=== PATIENT | female | born 2005 | race Two or more races ===

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

== ENCOUNTER → 2025-01-16 | Outpatient (CLI) | payer OTHER ==
[2025-01-16 08:00] LABS: Basophils # (auto) 0 10 ^3/uL (0-0.2); Basophils % (auto) 0.5 % (0.0-2.0); Eosinophils # (auto) 0 10 ^3/uL (0-0.8); Eosinophils % (auto) 0.5 % (0.0-7.0); Hematocrit 34.7 % (36.0-46.0); Hemoglobin 11.8 g/dL (12.2-16.2); Lymphocytes # (auto) 1.8 10 ^3/uL (0.4-5.4); Lymphocytes % (auto) 28.5 % (10.0-50.0); Mean Corpuscular Hemoglobin 29.6 pg (28.0-32.0); Mean Corpuscular Hgb Conc. 34.2 g/dL (32.0-36.0); Mean Corpuscular Volume 86.5 fL (80.0-100.0); Monocytes # (auto) 0.6 10 ^3/uL (0-1.3); Monocytes % (auto) 9.7 % (0.0-12.0); Neutrophils # (auto) 3.9 10 ^3/uL (1.6-8.6); Neutrophils % (auto) 60.8 % (37.0-80.0); Nucleated Red Blood Cells % 0.1 %; Platelet Count (auto) 291 10^3/uL (140-450); Red Blood Cells 4.01 10^6/uL (4.0-5.20); Red Cell Distribution Width 13.1 % (11.8-14.3); White Blood Cell 6.5 10^3/uL (4.4-10.8)
[2025-01-16 08:40] LABS: Alanine Aminotransferase 13 U/L (7-40); Alkaline Phosphatase 61 U/L (46-116); Anion Gap 9 (5-15); BUN/Creatinine Ratio 13.8 (10.0-20.0); Calcium 9.8 mg/dL (8.7-10.4); Carbon Dioxide 21 mmol/L (20-31); Glucose 88 mg/dL (74-106); Sodium 138 mmol/L (136-145); Total Protein 6.7 g/dL (5.7-8.2)
[2025-01-16 08:41] LABS: Albumin 4.2 g/dL (3.2-4.8)
[2025-01-16 08:52] LABS: Aspartate Aminotransferase < 8 U/L (13-40); Bilirubin, Total 0.2 mg/dL (0.2-1.0); Blood Urea Nitrogen 8 mg/dL (9-23); Chloride 108 mmol/L (98-107); Potassium 3.5 mmol/L (3.5-5.1)
[2025-01-18 00:07] LABS: Chlamydia Trachomatis, NAA Negative (Negative); Neisseria gonorrhoeae, NAA Negative (Negative)
== END | disposition home or self-care (01) ==
LOC: LAB 07:36
PROVIDERS: ATTEND Obstetrics & Gynecology
DX: Z34.00 Encounter for supervision of normal first pregnancy, unspecified trimester (principal); Z3A.00 Weeks of gestation of pregnancy not specified
CPT/HCPCS: 36415; 80053; 82951; 83036; 85025; 86780; 86850; 86900; 86901

== ENCOUNTER 2025-01-29 22:07 | Observation (INO) | payer OTHER ==
[~2025-01-29] VITALS: Ht 172.7 cm; Wt 72.6 kg
[2025-01-29] MEDS ORDERED: LACTATED RINGER'S 1,000 ML IV SCH (22:45)
[2025-01-29] MEDS ORDERED: LACTATED RINGER'S 1,000 ML IV ONE (22:45)
--- NOTE | 2025-01-29 23:26 | DVH ---
LIMITED SURVEY CLINICAL HISTORY: ABDOMINAL PAIN COMPARISON: None TECHNIQUE: Grayscale imaging of the pelvis is performed FINDINGS: Fetus is in breech position. Placenta is anterior Cord insertion is midabdomen and heart rate is 100 62 beats per minute. Amniotic fluid index is 16.06 cm with deepest pocket = 4.71 cm. Closed cervix measures 3.3 cm. No evidence for placenta previa previa the placenta is anterior and fu ndal IMPRESSION: 1. Placenta is grossly unremarkable in the cervix is closed.
[2025-01-29 23:31] LABS: Urine Bacteria None Seen /hpf (None Seen)
[2025-01-29 23:52] LABS: Urine Blood Negative /uL (Negative); Urine Clarity Clear (Clear); Urine Color Light-Yellow (Yellow); Urine Protein, UAD Negative (Negative); Urine Specific Gravity 1.012 (1.001-1.035); Urine Squamous Epithelial Cell FEW /hpf (<5); Urine Urobilinogen Normal (Negative); Urine WBC 1 /HPF (0-5)
[2025-01-30 00:34] LABS: Vaginal Trichomonas Not Present
[2025-01-30 00:35] LABS: Vaginal Bacteria Rare; Vaginal Clue Cells None Seen; Vaginal Epithelial Cells Rare
[2025-01-30] MEDS: TERBUTALINE SULFATE 1 MG/ML 1ML VIAL SC SCH (00:42)
[2025-01-30 00:43] LABS: Fern Testing Negative
[2025-01-30] MEDS ORDERED: PREN27TA7 OR (00:51)
--- NOTE | 2025-02-01 08:19 | DVHDS2 ---
Physician Discharge Progress N Final Diagnosis: abd pain 29wks Operations or Procedures: Operations or Procedures nst,sono Condition on Discharge: Good Disposition: Home Discharge Instructions: Diet: Regular Diet comment: INCREASE WATER INTAKE. Activity: No Restrictions, As Tolerated Activity comment: PELVIC REST. NO INTERCOURSE UNTIL 37 WEEKS GESTATION. Follow Up/Referral: KEEP CURRENT APPOINTMENT WITH DARRYL LEON NP Medications: CONTINUE TAKING VITAMINS DAILY. START TAKING PROCARDIA 10MG BY MOUTH EVERY 8 HOURS. Follow Up Care: Specialist: 1w Discharge Statement: "Patient was advised to return to the ER or call 911 if any headaches, dizziness, shortness of breath, chest pain, abdominal pain, bleeding, fevers, or worsening of medical condition. Patient was counseled about treatment plan, medications, possible side effects, patientverbalized understanding. All questions were answered to the best of my ability. This discharge took greater then 30 minutes in planning, reviewing documentation, counseling the patient, and discussing with other team members." Visit Coding OBGYN Date of Service: Jan 30, 2025 Billing Provider: MERRY SHAFER DO REGIONAL SERVICE MANAGER Common Visit Codes: [id number] OBS CARE (HIGH), [id number] INP/OBS CARE (HIGH) REGIONAL SERVICE MANAGER Procedure Codes: 60225-98- NON-STRESS TEST MERRY SHAFER DO Feb 01, 2025 08:19
== END 2025-01-30 01:01 | disposition home or self-care (01) ==
LOC: LDRP 22:07
PROVIDERS: ADMIT Obstetrics & Gynecology; ATTEND Obstetrics & Gynecology
DX: O26.893 Other specified pregnancy related conditions, third trimester (principal); R10.9 Unspecified abdominal pain; O99.891 Other specified diseases and conditions complicating pregnancy; M54.9 Dorsalgia, unspecified; O42.913 Preterm premature rupture of membranes, unspecified as to length of time between rupture and onset of labor, third trimester; Z3A.29 29 weeks gestation of pregnancy
CPT/HCPCS: 76815; 81001; 87210; 94760; 96360; 96361; 96372; G0378; J3105; Q0114